=== PATIENT | female | born 1965 | race Caucasian/White ===

== ENCOUNTER 2021-10-23 08:09 | Emergency (ER) | payer OTHER ==
--- OUTSIDE RECORDS SUMMARY | 2021-10-23 08:12 | XMS REPORT | Continuity of Care Document ---
:1965 Author Organization [facility] t Address [address] [place] [address] Care Team Providers Name Role Phone PCP, DOES NOT HAVE A Primary Care Physician Unavailable Nurse, Pob Immunization Attending Clinician Unavailable Maxwell Moreland DO Attending Clinician MAXWELL MORELAND Attending Clinician Unavailable Chaka Hurst MD Attending Clinician Chaka HURST Attending Clinician Unavailable Payers Payer Name Policy Type Policy Number Effective Date Expiration Date S maria elena [employer] [id number] 2019 OUT OF NETWORK 00:00:00 Problems Condition Condition Condition Status Onset Resolution Last Treating Co mments Source Name Details Category Date Date Treatment Clinician Date No known No known Disease Unive rs active active ity of problems problems [facility] Allergies, Adverse Reactions, Alerts Allergy Allergy Status Severity Reaction(s) Onset Inactive Treating Comm ents Source Name Type Date Date Clinician PENICILL Drug Active Low N/V Univers INS Class 8-06 ity of 00:00: [place] 00 [facility] Penicill Propensi Active Nausea Univer s ins ty to and/or 806 ity of adverse Vomiting 00:00: [place] reaction 00 [facility] Social History Social Habit Start Date Stop Date Quantity Comments Source Exposure to Not sure [facility] SARS-CoV-2 (event) Medica l Branch Sex Assigned At [birth year] [facility] 00:00:00 00:00:00 [facility] Smoking Status Start Date Stop Date Source Unknown if ever smoked [facility] Medications Ordered Filled Start Stop Current Ordering Indication Dosage Frequency Signature Comments Components Source Medication Medication Date Date Medication? Clinician (SIG) Name Name levothyroxi 2020-05- No 125ug Take 125 Univers ne 1-19 11-19 mcg by ity of (SYNTHROID) 17:06: 00:00 mouth. Ben as 125 mcg 08 :00 Medical tablet Branch levothyroxi 2020-05- No 125ug Take 125 Univers ne 1-19 11-19 mcg by ity of (SYNTHROID) 17:06: 00:00 mouth. Ben as 125 mcg 08 :00 Medical tablet Branch levothyroxi 2020-05 Yes [id number] 125ug Take 1 Univers ne 1-19 tablet by ity of (SYNTHROID) 00:00: mouth [place] 125 mcg 00 every Medical tablet morning. Branch Synthroid brand medically necessary. levothyroxi 2020-05 Yes [id number] 125ug Take 1 Univers ne 1-19 tablet by ity of (SYNTHROID) 00:00: mouth [place] 125 mcg 00 every Medical tablet morning. Branch Synthroid brand medically necessary. levothyroxi 2020-05 Yes [id number] 125ug Take 1 Univers ne 1-19 tablet by ity of (SYNTHROID) 00:00: mouth [place] 125 mcg 00 every Medical tablet morning. Branch Synthroid brand medically necessary. estradioL Yes 1mg Take 1 mg Uni vers 0.5 mg 8-06 by mouth ity of tablet 09:29: daily. [address] estradioL 0 Yes 1mg Take 1 mg Uni vers 0.5 mg 8-06 by mouth ity of tablet 09:29: daily. [address] estradioL Yes 1mg Take 1 mg Uni vers 0.5 mg 8-06 by mouth ity of tablet 09:29: daily. [address] Immunizations Ordered Filled Immunization Date Status Comments [facility] e Immunization Name Name SARS-COV-2 COVID-19 2021-05-01 Completed Unive rsity of MODERNA BOOSTER 00:00:00 [place] Med ical VACCINE [facility] SARS-COV-2 COVID-19 2020-08-09 Completed Unive rsity of PFIZER VACCINE 00:00:00 [facility] SARS-COV-2 COVID-19 2020-08-09 Completed Unive rsity of PFIZER VACCINE 00:00:00 [facility] SARS-COV-2 COVID-19 2020-08-09 Completed Unive rsity of PFIZER VACCINE 00:00:00 [facility] SARS-COV-2 COVID-19 2020-07-19 Completed Unive rsity of PFIZER VACCINE 00:00:00 [facility] SARS-COV-2 COVID-19 2020-07-19 Completed Unive rsity of PFIZER VACCINE 00:00:00 [facility] SARS-COV-2 COVID-19 2020-07-19 Completed Unive rsity of PFIZER VACCINE 00:00:00 [facility] Vital Signs Vital Name Observation Time Observation Value Comments Source Systolic blood 2021-03-20 22:56:00 127 mm[Hg] Univer sity of [facility] Diastolic blood 2021-03-20 22:56:00 84 mm[Hg] Unive rsity of [facility] Heart rate 2021-03-20 22:56:00 80 /min [facility] Procedures Procedure Date / Time Performed Performing Clinician Sour e SARS-COV-2 COVID-2021-05-01 22:30:24 Doctor Unassigned, No [facility] [place] V[facility] Name [facility] BOOSTER,0.25ML,IM (MODERNA) Encounters Start End Encounter Admission Attending Care Care Encounter Source Date/Time Date/Time Type Type Clinicians Facility Department ID 2021-05-01 2021-05-01 Imm/Inj Nurse, Adc Pob Immunization [facility] [id number] Univers 16:20:00 16:20:00 Visit Enrrique Moreland [id number] [id number] [id number] [place] halima [facility] [address] [facility] 2021-05-01 2021-05-01 Outpatient R NGOZI [facility] [id number] Univers 16:20:00 16:19:29 ENRRIQUE rasheed [facility] 2021-03-20 2021-03-20 Office Roel [facility] [id number] Univers 15:30:00 17:18:47 Visit Robert JERZY [id number] it y daniela BURNS [id number] [place] as JOYCE?BLEA [phone] [place] dical [facility] [address] MEDICAL OFFICE BUILDING 2021-03-20 2021-03-20 Outpatient R ROEL [facility] [id number] Univers 15:30:00 17:18:47 ROBERT rasheed of [facility] Results This patient has no known results.
[2021-10-23] MEDS ORDERED: ACETAMINOPHEN 325 MG TABLET ONE (08:53)
[2021-10-23] MEDS ORDERED: IBUPROFEN 400 MG TAB ONE (08:54)
--- NOTE | 2021-10-23 09:53 | EDPHYS ---
Physician Documentation [facility] Name: Imelda Snow Age: 56 yrs Sex: Female : 1965 Arrival Date: 10/23/2021 Time: 08:12 Bed 20 Private MD: ED Physician Raoul Beckwith HPI: 10/22 08:35 This 56 yrs old Female presents to ER via Ambulatory with complaints of Hand Pain, cp Wrist Pain, Fall Injury. 08:35 The patient or guardian reports an abrasion, injury, pain. The complaints affect the cp left hand. Context: resulted from a fall, on an outstretched hand. Onset: The symptoms/episode began/occurred just prior to arrival. Historical: - Allergies: 10/23 08:24 PENICILLINS; jl7 - Home Meds: 08:24 Synthroid Oral [Active]; jl7 - PMHx: 08:24 Hypothyroidism; jl7 - PSHx: 08:24 Total abdominal hysterectomy; jl7 - Immunization history:: Client reports receiving the 2nd dose of the Covid vaccine. - Social history:: Smoking status: Patient denies any tobacco usage or history of. ROS: 08:40 MS/extremity: Positive for contusion, ecchymosis, pain, swelling, tenderness, Negative cp for decreased range of motion, deformity. 08:40 Constitutional: Negative for fever. cp 08:40 Neck: Negative for pain with movement, pain at rest, stiffness. 08:40 Back: Negative for pain at rest, pain with movement. 08:40 Neuro: Negative for dizziness, numbness, weakness. 08:40 All other systems are negative. Exam: 08:45 Constitutional: The patient appears in no acute distress, alert, awake, non-toxic, well cp developed, well nourished. 08:45 Head/Face: Normocephalic, atraumatic. cp 08:45 Neck: ROM/movement: is normal, is supple, without pain, no range of motions limitations. 08:45 Chest/axilla: Inspection: normal. 08:45 Cardiovascular: Rate: normal, Rhythm: regular. 08:45 Respiratory: the patient does not display signs of respiratory distress, Respirations: normal, no use of accessory muscles, no retractions, labored breathing, is not present. 08:45 Back: pain, is absent, ROM is normal. 08:45 Musculoskeletal/extremity: Extremities: grossly normal except: noted in the left hand: mild ecchymosis and swelling noted to dorsum left hand with multiple mandeep of superficial abrasions noted to correia side of left hand, ROM: full active range of motion, in the left hand, Perfusion: the extremity is normally perfused throughout, the left hand Sensation intact. 08:45 Neuro: Orientation: to person, place \T\ time. Mentation: is normal. Vital Signs: 08:22 BP 128 / 74; Pulse 63; Resp 17; Temp 97.9; Pulse Ox 100% ; Weight 77.11 kg; Height 5 jl7 ft. 1 in. (154.94 cm); Pain 4/10; 08:45 BP 137 / 80; Pulse 65; Resp 14 S; Pulse Ox 98% on R/A; Pain 5/10; jg9 09:45 BP 135 / 82; Pulse 66; Resp 14 S; Pulse Ox 99% on R/A; Pain 4/10; jg9 08:22 Body Mass Index 32.12 (77.11 kg, 154.94 cm) 7 MDM: 08:31 Patient medically screened. cp 09:00 Differential diagnosis: dislocation, open fracture, closed fracture, contusion, cp abrasion. 09:52 Data reviewed: vital signs, nurses notes, radiologic studies, plain films. cp 09:52 Test interpretation: by ED physician or midlevel provider: plain radiologic studies. cp Counseling: I had a detailed discussion with the patient and/or guardian regarding: the historical points, exam findings, and any diagnostic results supporting the discharge/admit diagnosis, radiology results, to return to the emergency department if symptoms worsen or persist or if there are any questions or concerns that arise at home. Response to treatment: the patient's symptoms have markedly improved after treatment, and as a result, I will discharge patient. 10/23 08:35 Order name: XRAY Hand LEFT 3 View cp 10/23 09:29 Order name: Wound dressing; Complete Time: 10:02 cp 10/23 09:51 Order name: Splint: volar splint; Complete Time: 10:02 cp Administered Medications: 08:52 Drug: Ibuprofen 800 mg Route: PO; jg9 09:10 Follow up: Response: No adverse reaction 9 08:52 Not Given (Patient Refused): Tylenol 650 mg PO once jg9 10:30 Drug: Tetanus Toxoid,Adsorbed 0.5 ml {Systems Test Analyst: [employer]. Exp: 07/24/2023. Lot jg9 #: [id number]. } Route: IM; Site: right deltoid; 10:31 Follow up: Response: No adverse reaction jg9 Disposition: 18:05 Co-signature as Attending Physician, Raoul Beckwith MD. rn Disposition Summary: 10/23/21 09:52 Discharge Ordered Location: Home cp Problem: new cp Symptoms: have improved cp Condition: Stable cp Diagnosis - Contusion of left hand cp - Abrasion of left hand cp Followup: cp - With: Private Physician - When: 2 - 3 days - Reason: Worsening of condition Discharge Instructions: - Discharge Summary Sheet cp - Abrasion cp - Hand Contusion cp Forms: - Medication Reconciliation Form cp - Thank You Letter cp - Antibiotic Education cp - Prescription Opioid Use cp Prescriptions: - Ibuprofen 800 mg Oral Tablet - take 1 tablet by ORAL route every 8 hours As needed take with food; 30 tablet; cp Refills: 0, Product Selection Permitted Signatures: Dispatcher [employer] EDRaoul Marc MD MD rn Page, Corey, PA PA cp Lety Mora RN RN jl7 Kasey Storey RN RN jg9 Corrections: (The following items were deleted from the chart) 08:25 08:24 Allergies: No Known Allergies; avi jl7
--- NOTE | 2021-10-23 09:53 | ER ---
Nurse's Notes [facility] Name: Imelda Snow Age: 56 yrs Sex: Female : 1965 Arrival Date: 10/23/2021 Time: 08:12 Bed 20 Private MD: Diagnosis: Contusion of left hand;Abrasion of left hand Presentation: 10/23 08:22 Chief complaint: Patient states: Tripped and fell while walking on uneven sidewalk, jl7 reports pain to left palm and knuckles, swelling and abrasions noted, unknown last tetanus. Coronavirus screen: At this time, the client does not indicate any symptoms associated with coronavirus-19. Ebola Screen: No symptoms or risks identified at this time. Initial Sepsis Screen: Does the patient meet any 2 criteria? No. Patient's initial sepsis screen is negative. Does the patient have a suspected source of infection? No. Patient's initial sepsis screen is negative. Risk Assessment: Do you want to hurt yourself or someone else? Patient reports no desire to harm self or others. Onset of symptoms was October 23, 2021. 08:22 Method Of Arrival: Ambulatory [facility] 08:22 Acuity: CORINA 4 jl7 Triage Assessment: 08:24 General: Appears in no apparent distress. uncomfortable, Behavior is calm, cooperative, jl7 appropriate for age. Pain: Complains of pain in left hand Pain currently is 4 out of 10 on a pain scale. Historical: - Allergies: 08:24 PENICILLINS; jl7 - Home Meds: 08:24 Synthroid Oral [Active]; jl7 - PMHx: 08:24 Hypothyroidism; jl7 - PSHx: 08:24 Total abdominal hysterectomy; jl7 - Immunization history:: Client reports receiving the 2nd dose of the Covid vaccine. - Social history:: Smoking status: Patient denies any tobacco usage or history of. Screenin:53 Abuse screen: Denies threats or abuse. Denies injuries from another. Nutritional jg9 screening: No deficits noted. Tuberculosis screening: No symptoms or risk factors identified. Fall Risk Fall in past 12 months (25 points). Assessment: 08:52 Reassessment: No changes from previously documented assessment. Patient sitting on bed jg9 awake and talking in no obvious distress with ice pack to left hand/wrist-pain is 5/10. Vital Signs: 08:22 BP 128 / 74; Pulse 63; Resp 17; Temp 97.9; Pulse Ox 100% ; Weight 77.11 kg; Height 5 jl7 ft. 1 in. (154.94 cm); Pain 4/10; 08:45 BP 137 / 80; Pulse 65; Resp 14 S; Pulse Ox 98% on R/A; Pain 5/10; jg9 09:45 BP 135 / 82; Pulse 66; Resp 14 S; Pulse Ox 99% on R/A; Pain 4/10; jg9 08:22 Body Mass Index 32.12 (77.11 kg, 154.94 cm) 7 ED Course: 08:12 Patient arrived in ED. am2 08:20 Diomedes Vaughan PA is PHCP. cp 08:20 Raoul Beckwith MD is Attending Physician. cp 08:24 Triage completed. jl7 08:24 Arm band placed on right wrist. [facility] 08:27 Kasey Storey, STANISLAW is Primary Nurse. j9 08:54 Patient has correct armband on for positive identification. Bed in low position. Call jg9 light in reach. Side rails up X 1. 09:25 XRAY Hand LEFT 3 View In Process Unspecified. EDMS 10:32 No provider procedures requiring assistance completed. jg9 10:33 Patient did not have IV access during this emergency room visit. jg9 Administered Medications: 08:52 Drug: Ibuprofen 800 mg Route: PO; jg9 09:10 Follow up: Response: No adverse reaction jg9 08:52 Not Given (Patient Refused): Tylenol 650 mg PO once jg9 10:30 Drug: Tetanus Toxoid,Adsorbed 0.5 ml {Bilingual Operator: [employer] Exp: 07/24/2023. Lot jg9 #: [id number]. } Route: IM; Site: right deltoid; 10:31 Follow up: Response: No adverse reaction jg9 Medication: 10:32 Vaccine Information Statement (VIS) provided today. Questions and/or concerns jg9 addressed. VIS edition date: October 23, 2021. Outcome: 09:52 Discharge ordered by . cp 10:33 Discharged to home ambulatory. jg9 10:33 Condition: stable 10:33 Discharge instructions given to patient, Instructed on discharge instructions, follow up and referral plans. Demonstrated understanding of instructions, follow-up care, Prescriptions given X 1. 10:34 Patient left the ED. jg9 Signatures: Dispatcher [employer] EDMS Diomedes Vaughan PA PA cp Leal, Jahala RN RN jl7 Chelly Barajas Jennifer RN RN jg9 Corrections: (The following items were deleted from the chart) 08:25 08:24 Allergies: No Known Allergies; avi cárdenas
--- NOTE | 2021-10-23 10:02 | RAD REPORT ---
EXAM DESCRIPTION: RAD - Hand Left 3 View - 10/23/2021 9:23 am CLINICAL HISTORY: fall COMPARISON: No comparisons FINDINGS: Soft tissue swelling is seen along the dorsum of the hand. No fracture seen.
[2021-10-23] MEDS ORDERED: TETANUS & DIPHTHERIA TOX,ADULT 0.5 ML VIAL ONE (10:21)
[2021-10-23 10:39] VITALS: TEMP 97.9
[2021-10-23 10:43] VITALS: BP 135/82; O2SAT 99
== END 2021-10-23 10:34 | disposition home or self-care (01) ==
LOC: ER 08:09
DX: S60.512A Abrasion of left hand, initial encounter (principal); E03.9 Hypothyroidism, unspecified; Z23 Encounter for immunization; Z88.0 Allergy status to penicillin
CPT/HCPCS: 90471; 90714; 99283

== ENCOUNTER 2022-04-13 10:28 | Emergency (ER) | payer OTHER ==
[2022-04-13] MEDS ORDERED: TRAMADOL HCL 50 MG TAB ONE ×2 (11:09→13:27)
--- NOTE | 2022-04-13 12:12 | RAD REPORT ---
EXAM DESCRIPTION: RAD - Knee Right 3 View - 04/13/2022 11:45 am CLINICAL HISTORY: PAIN COMPARISON: No comparisons FINDINGS: No fracture, dislocation or periosteal reaction.Minimal joint effusion is present. Patella femoral joint space is narrowed. Large patella marginal spurs. Moderate to moderately large marginal spurs are present along the articular margins of the femur. Minimal spurring seen along the tibial s pine. No pathologic bone process. No foreign body or other soft tissue abnormality. IMPRESSION: Advanced for age knee joint degenerative change without acute bone finding. Minimal joint effusion. Clinical concerns for internal derangement or occult bony injury could be further assessed with MR im aging.
--- NOTE | 2022-04-13 12:53 | EDPHYS ---
Physician Documentation [facility] Name: Imelda Snow Age: 57 yrs Sex: Female : 1965 Arrival Date: 04/13/2022 Time: 10:33 Bed IW1 Private MD: Jose Anderson ED Physician Jimmy Perea HPI: 04/13 15:45 This 57 yrs old Female presents to ER via Wheelchair with complaints of Knee Pain. kb 15:45 The patient presents with decreased range of motion, pain, that is acute. The kb complaints affect the right knee. Context: The problem was sustained at home, resulted from an unknown cause, the patient can partially bear weight, the patient is not able to ambulate, Problem is a result from a previous injury: No. Onset: The symptoms/episode began/occurred 4 day(s) ago. Modifying factors: The symptoms are alleviated by nothing. the symptoms are aggravated by movement. Associated signs and symptoms: The patient has no apparent associated signs or symptoms. Treatment prior to arrival includes: kristine wrap. Severity of symptoms: At their worst the symptoms were moderate, in the emergency department the symptoms are unchanged. The patient has not experienced similar symptoms in the past. The patient has not recently seen a physician. Pt reports she was on a cruise last week, was walking a lot and developed some soreness to right knee. States it got worse about 3 days ago, then today became unbearable on some steps. States she has had problems with right knee in the past. Historical: - PMHx: 11:10 Hypothyroidism; jh5 - PSHx: 11:10 Total abdominal hysterectomy; 5 - Immunization history:: Adult Immunizations up to date. - Social history:: Smoking status: Patient denies any tobacco usage or history of. ROS: 15:43 Constitutional: Negative for fever, chills, and weight loss. kb 15:43 MS/extremity: Positive for decreased range of motion, pain, of the right knee. 15:43 All other systems are negative. Exam: 15:43 Constitutional: This is a well developed, well nourished patient who is awake, alert, kb and in no acute distress. Head/Face: Normocephalic, atraumatic. ENT: Moist Mucous membranes Cardiovascular: Regular rate and rhythm with a normal S1 and S2. No gallops, murmurs, or rubs. No pulse deficits. Respiratory: Respirations even and unlabored. No increased work of breathing. Talking in full sentences Skin: Warm, dry with normal turgor. Normal color. Neuro: Awake and alert, GCS 15, oriented to person, place, time, and situation. Moves all extremities. Normal gait. Psych: Awake, alert, with orientation to person, place and time. Behavior, mood, and affect are within normal limits. 15:43 Musculoskeletal/extremity: Extremities: grossly normal except: noted in the right knee: decreased ROM, pain, ROM: limited active range of motion due to pain, Circulation is intact in all extremities. Sensation intact. Weight bearing: can bear weight with assistance only. Vital Signs: 11:08 BP 145 / 77; Pulse 71; Resp 18; Temp 99.2; Pulse Ox 97% ; Weight 84.37 kg; Height 5 ft. jh5 1 in. (154.94 cm); Pain 4/10; 11:08 Body Mass Index 35.14 (84.37 kg, 154.94 cm) jh5 MDM: 11:09 Patient medically screened. kb 15:40 Data reviewed: vital signs, nurses notes. Data interpreted: Pulse oximetry: on room air kb is 97 %. Interpretation: normal. Counseling: I had a detailed discussion with the patient and/or guardian regarding: the historical points, exam findings, and any diagnostic results supporting the discharge/admit diagnosis, radiology results, the need for outpatient follow up, a orthopedic surgeon, to return to the emergency department if symptoms worsen or persist or if there are any questions or concerns that arise at home. 04/13 11:09 Order name: Knee Right 3 View XRAY; Complete Time: 12:23 kb 04/13 12:32 Order name: Knee Immobilizer; Complete Time: 13:22 kb 04/13 12:32 Order name: Crutches; Complete Time: 13:22 kb Administered Medications: 13:33 Not Given (Patient Refused): traMADol 50 mg PO once jh5 Disposition: 15:43 Co-signature as Attending Physician, Jimmy Perea DO I was immediately available onsite ms3 in the emergency department for consultation in the care of the patient. Disposition Summary: 04/13/22 12:53 Discharge Ordered Location: Home kb Condition: Stable kb Diagnosis - Pain in right knee kb Followup: kb - With: Emergency Department - When: As needed - Reason: Worsening of condition Followup: kb - With: Private Physician - When: 2 - 3 days - Reason: Recheck today's complaints, Continuance of care, Re-evaluation by your physician Discharge Instructions: - Discharge Summary Sheet kb - Acute Knee Pain, Adult kb - Acute Knee Pain, Adult, [id number] kb Forms: - Medication Reconciliation Form kb - Thank You Letter kb - Antibiotic Education kb - Prescription Opioid Use kb Prescriptions: - Diclofenac Sodium 75 mg Oral tablet,delayed release (DR/EC) - take 1 tablet by ORAL route 2 times per day As needed; 30 tablet; Refills: 0, kb Product Selection Permitted Signatures: Dispatcher [employer] EDMS Carey Wallace, ELSIE-C ELSIE-Jimmy Hanley DO DO ms3 Anusha Felipe, RN RN jh5
--- NOTE | 2022-04-13 12:53 | ER ---
Nurse's Notes [facility] Name: Imelda Snow Age: 57 yrs Sex: Female : 1965 Arrival Date: 04/13/2022 Time: 10:33 Bed IW1 Private MD: Jose Anderson Diagnosis: Pain in right knee Presentation: 04/13 11:08 Chief complaint: Patient states: right knee pain x4 days; worse after going up stairs jh5 today. Coronavirus screen: Vaccine status: Patient reports receiving the 2nd dose of the covid vaccine. Client denies travel out of the [place] in the last 14 days. Ebola Screen: Patient negative for fever greater than or equal to 101.5 degrees Fahrenheit, and additional compatible Ebola Virus Disease symptoms Patient denies exposure to infectious person. Patient denies travel to an Ebola-affected area in the 21 days before illness onset. Initial Sepsis Screen: Does the patient meet any 2 criteria? No. Patient's initial sepsis screen is negative. Does the patient have a suspected source of infection? No. Patient's initial sepsis screen is negative. Risk Assessment: Do you want to hurt yourself or someone else? Patient reports no desire to harm self or others. 11:08 Method Of Arrival: Wheelchair [facility] 11:08 Acuity: CROINA 3 [facility] Historical: - PMHx: 11:10 Hypothyroidism; 5 - PSHx: 11:10 Total abdominal hysterectomy; 5 - Immunization history:: Adult Immunizations up to date. - Social history:: Smoking status: Patient denies any tobacco usage or history of. Vital Signs: 11:08 BP 145 / 77; Pulse 71; Resp 18; Temp 99.2; Pulse Ox 97% ; Weight 84.37 kg; Height 5 ft. 5 1 in. (154.94 cm); Pain 4/10; 11:08 Body Mass Index 35.14 (84.37 kg, 154.94 cm) [facility] ED Course: 10:33 Patient arrived in ED. rg4 10:33 Jose Anderson DO is Private Physician. rg4 10:41 Carey Wallace [facility]NP-C [facility]. kb 10:42 Jimmy Perea DO is Attending Physician. kb 11:10 Triage completed. 5 11:42 Knee Right 3 View XRAY In Process Unspecified. EDMS Administered Medications: 13:33 Not Given (Patient Refused): traMADol 50 mg PO once 5 Outcome: 12:53 Discharge ordered by . ab 13:34 Patient left the ED. 5 Signatures: Dispatcher [employer] EDMS Carey Wallace FNP-C FNP-Ckb Garcia, Rubi rg4 Anusha Felipe RN RN 5
[2022-04-13 13:38] VITALS: BP 145/77; TEMP 99.2; O2SAT 97
== END 2022-04-13 13:34 | disposition home or self-care (01) ==
LOC: ER 10:28
DX: M25.561 Pain in right knee (principal)
CPT/HCPCS: 99282